=== PATIENT | female | born 1945 | race Caucasian/White ===

== ENCOUNTER 2017-12-01 14:15 | Observation (INO) | payer MEDICARE ==
[2017-12-01] MEDS ORDERED: SODIUM CHLORIDE 0.9% 500 ML IV ONE (14:40)
--- NOTE | 2017-12-01 14:44 | ED ---
General Adult HPI - General Chief complaint: Neuro Symptoms/Deficit Stated complaint: poss stroke Time Seen by Provider: 12/01/17 14:25 Source: patient, family, RN notes reviewed Mode of arrival: wheelchair Limitations: no limitations - History of Present Illness Initial comments: This is a 71-year-old female presents to the emergency department complaining of forgetfulness. states about 10:00 this morning he noted that she could not remember the dog's name and is asked about 8 times since he cannot recall the doctor's name. Patient also try to go to the bank and the post office but was unable to find it while driving around town. Patient then went to a urgent care where she saw and they recommended she come to our facility. Patient has had no blurred vision no slurred speech no weakness or numbness. states aside from her altered mental status he has not noticed any changes. He states yesterday she was completely normal. She has not had a fever she has not been sick recently she does not complain of any chest pain or abdominal pain. Patient is on any vomiting or diarrhea recently. - Related Data Home Medications Medication Instructions Recorded Confirmed Cholecalciferol [Vitamin D3] 1,000 unit PO DAILY 12/01/17 12/01/17 Escitalopram [Lexapro] 20 mg PO DAILY 12/01/17 12/01/17 Ipratropium [place] [Ipratropium 2 sprays EA NOSTRIL TID 12/01/17 12/01/17 [place] 0.03%] Krill Oil 500 mg PO DAILY 12/01/17 12/01/17 Levothyroxine Sodium [Synthroid] 125 mcg PO DAILY 12/01/17 12/01/17 Losartan Potassium 100 mg PO DAILY 12/01/17 12/01/17 Melatonin 10 mg PO HS 12/01/17 12/01/17 Multivitamins, Thera [Multivitamin 1 tab PO DAILY 12/01/17 12/01/17 (formulary)] buPROPion HCL [Wellbutrin SR] 150 mg PO BID 12/01/17 12/01/17 Allergies Allergy/AdvReac Type Severity Reaction Status Date / Time amoxicillin Allergy Unknown Verified 12/01/17 15:19 Penicillins Allergy Unknown Verified 12/01/17 15:19 latex AdvReac Unknown Verified 12/01/17 15:19 Review of Systems ROS Statement: Those systems with pertinent positive or pertinent negative responses have been documented in the HPI. ROS Other: All systems not noted in ROS Statement are negative. Past Medical History Past Medical History: Hyperlipidemia, Hypertension History of Any Multi-Drug Resistant Organisms: None Reported Past Surgical History: Appendectomy, Cholecystectomy, Tonsillectomy Additional Past Surgical History / Comment(s): bilateral hip replacement, knee surg, ankle Past Psychological History: No Psychological Hx Reported Smoking Status: Never smoker Past Alcohol Use History: None Reported Past Drug Use History: None Reported General Exam - General Exam Comments Initial Comments: GENERAL: Patient is well-developed and well-nourished. Patient is nontoxic and well- hydrated and is in no acute distress. Mildly anxious. ENT: Neck is soft and supple. No significant lymphadenopathy is noted. Oropharynx is clear. Moist mucous membranes. Neck has full range of motion without eliciting any pain. EYES: The sclera were anicteric and conjunctiva were pink and moist. Extraocular movements were intact and pupils were equal round and reactive to light. Eyelids were unremarkable. PULMONARY: Unlabored respirations. Good breath sounds bilaterally. No audible rales rhonchi or wheezing was noted. CARDIOVASCULAR: There is a regular rate and rhythm without any murmurs gallops or rubs. ABDOMEN: Soft and nontender with normal bowel sounds. No palpable organomegaly was noted. There is no palpable pulsatile mass. SKIN: Skin is clear with no lesions or rashes and otherwise unremarkable. NEUROLOGIC: Patient is alert and oriented x3. Patient however still cannot remember her daughter's name. Cranial nerves II through XII are grossly intact. Motor and sensory are also intact. Normal speech, volume and content. Symmetrical smile. MUSCULOSKELETAL: Normal extremities with adequate strength and full range of motion. No lower extremity swelling or edema. No calf tenderness. LYMPHATICS: No significant lymphadenopathy is noted PSYCHIATRIC: Normal psychiatric evaluation. Limitations: no limitations Course Vital Signs 12/01/17 12/01/17 12/01/17 14:24 14:45 15:00 Temperature 98.2 F Pulse Rate 71 64 78 Respiratory 18 18 18 Rate Blood Pressure 132/61 143/58 144/65 O2 Sat by Pulse 96 97 97 Oximetry 12/01/17 15:15 Temperature Pulse Rate 72 Respiratory 18 Rate Blood Pressure 146/60 O2 Sat by Pulse 97 Oximetry Medical Decision Making - Medical Decision Making EKG shows normal sinus rhythm at 67 bpm KS interval 170 QRS is 90 QT interval 426 QTC is 450. Patient's EKG shows no ST segment elevation or depression or T wave abnormalities are noted. CT of the brain showed no acute abnormality. Chest x-ray showed no acute abnormality. I spoke with Dr. Coon he agreed to admit the patient I admitted the patient I wrote admitting orders and consult to neurology and ordered neuro checks on the patient on the floor. - Lab Data Result diagrams: 12/01/17 15:00 12/01/17 15:00 Lab Results 12/01/17 12/01/17 12/01/17 Range/Units 14:37 15:00 15:00 WBC 9.2 (3.8-10.6) k/uL RBC 4.23 (3.80-5.40) m/uL Hgb 13.2 (11.4-16.0) gm/dL Hct 38.7 (34.0-46.0) % MCV 91.6 (80.0-100.0) fL MCH 31.2 (25.0-35.0) pg MCHC 34.0 (31.0-37.0) g/dL RDW 12.9 (11.5-15.5) % Plt Count 256 (150-450) k/uL Neutrophils % 52 % Lymphocytes % 35 % Monocytes % 6 % Eosinophils % 4 % Basophils % 1 % Neutrophils # 4.8 (1.3-7.7) k/uL Lymphocytes # 3.2 (1.0-4.8) k/uL Monocytes # 0.6 (0-1.0) k/uL Eosinophils # 0.4 (0-0.7) k/uL Basophils # 0.1 (0-0.2) k/uL PT (9.0-12.0) sec INR (<1.2) APTT (22.0-30.0) sec Sodium (137-145) mmol/L Potassium (3.5-5.1) mmol/L Chloride (98-107) mmol/L Carbon Dioxide (22-30) mmol/L Anion Gap mmol/L BUN (7-17) mg/dL Creatinine (0.52-1.04) mg/dL Est GFR (CKD-EPI)AfAm (>60 ml/min/1.73 sqM) Est GFR (CKD-EPI)NonAf (>60 ml/min/1.73 sqM) Glucose (74-99) mg/dL POC Glucose (mg/dL) 104 H (75-99) mg/dL POC Glu Platen Grinder ID Robert German Calcium (8.4-10.2) mg/dL Total Bilirubin (0.2-1.3) mg/dL AST (14-36) U/L ALT (9-52) U/L Alkaline Phosphatase (38-126) U/L Total Creatine Kinase 78 (30-135) U/L Total Protein (6.3-8.2) g/dL Albumin (3.5-5.0) g/dL 12/01/17 12/01/17 Range/Units 15:00 15:00 WBC (3.8-10.6) k/uL RBC (3.80-5.40) m/uL Hgb (11.4-16.0) gm/dL Hct (34.0-46.0) % MCV (80.0-100.0) fL MCH (25.0-35.0) pg MCHC (31.0-37.0) g/dL RDW (11.5-15.5) % Plt Count (150-450) k/uL Neutrophils % % Lymphocytes % % Monocytes % % Eosinophils % % Basophils % % Neutrophils # (1.3-7.7) k/uL Lymphocytes # (1.0-4.8) k/uL Monocytes # (0-1.0) k/uL Eosinophils # (0-0.7) k/uL Basophils # (0-0.2) k/uL PT 10.7 (9.0-12.0) sec INR 1.1 (<1.2) APTT 22.9 (22.0-30.0) sec Sodium 146 H (137-145) mmol/L Potassium 3.9 (3.5-5.1) mmol/L Chloride 110 H (98-107) mmol/L Carbon Dioxide 21 L (22-30) mmol/L Anion Gap 15 mmol/L BUN 22 H (7-17) mg/dL Creatinine 0.70 (0.52-1.04) mg/dL Est GFR (CKD-EPI)AfAm >90 (>60 ml/min/1.73 sqM) Est GFR (CKD-EPI)NonAf 87 (>60 ml/min/1.73 sqM) Glucose 99 (74-99) mg/dL POC Glucose (mg/dL) (75-99) mg/dL POC Glu Platen Grinder ID Calcium 9.7 (8.4-10.2) mg/dL Total Bilirubin 0.4 (0.2-1.3) mg/dL AST 36 (14-36) U/L ALT 37 (9-52) U/L Alkaline Phosphatase 62 (38-126) U/L Total Creatine Kinase (30-135) U/L Total Protein 7.0 (6.3-8.2) g/dL Albumin 4.2 (3.5-5.0) g/dL Disposition Clinical Impression: Altered mental status Disposition: ADMITTED IP TO THIS HOSP Referrals: Rachid Souza MD [Primary Care Provider] - 1-2 days Time of Disposition: 15:51
[2017-12-01 14:46] LABS: Glucose,Whole Blood 104 mg/dL (75-99)
--- NOTE | 2017-12-01 15:07 | CT ---
EXAMINATION TYPE: CT brain wo con DATE OF EXAM: 12/01/2017 COMPARISON: NONE HISTORY: Altered mental status. CT DLP: 828.4 mGycm Automated exposure control for dose reduction was used. FINDINGS: Nasal septal deviation noted. Ventricular system is midline with no midline shift or mass effect. Nonspecific low attenuation within the white matter. No acute intracranial hemorrhage or mass effect. Calvarium intact with evidence of hyperostosis frontalis. Area of low attenuation within the cerebell um may been the basis of partial volume averaging. IMPRESSION: NO ACUTE HEMORRHAGE OR MASS EFFECT. NONSPECIFIC WHITE MATTER CHANGES AND LOW ATTENUATION WITHIN THE R IGHT CEREBELLUM. IF THERE IS CONCERN FOR ACUTE ISCHEMIA RECOMMEND MRI CLINICALLY WARRANTED.
[2017-12-01 15:21] LABS: Basophils # (A) 0.1 k/uL (0-0.2); Basophils % (A) 1 %; Eosinophils # (A) 0.4 k/uL (0-0.7); Eosinophils % (A) 4 %; HCT 38.7 % (34.0-46.0); HGB 13.2 gm/dL (11.4-16.0); Lymphocytes # (A) 3.2 k/uL (1.0-4.8); Lymphocytes % (A) 35 %; MCH 31.2 pg (25.0-35.0); MCV 91.6 fL (80.0-100.0); Monocytes # (A) 0.6 k/uL (0-1.0); Monocytes % (A) 6 %; Neutrophils # (A) 4.8 k/uL (1.3-7.7); Neutrophils % (A) 52 %; Platelet Count 256 k/uL (150-450); RBC 4.23 m/uL (3.80-5.40); RDW 12.9 % (11.5-15.5); WBC 9.2 k/uL (3.8-10.6)
[2017-12-01] MEDS ORDERED: ACETAMINOPHEN TAB 500 MG TAB PO STA (15:26)
[2017-12-01 15:32] LABS: ALT 37 U/L (9-52); AST 36 U/L (14-36); Albumin 4.2 g/dL (3.5-5.0); Alkaline Phosphatase 62 U/L (38-126); Anion Gap 15 mmol/L; Blood Urea Nitrogen 22 mg/dL (7-17); Calcium 9.7 mg/dL (8.4-10.2); Carbon Dioxide 21 mmol/L (22-30); Chloride 110 mmol/L (98-107); Glucose 99 mg/dL (74-99); Potassium 3.9 mmol/L (3.5-5.1); Sodium 146 mmol/L (137-145); Total Bilirubin 0.4 mg/dL (0.2-1.3)
[2017-12-01 15:35] LABS: INR 1.1 (<1.2); Partial Thromboplastin Time 22.9 sec (22.0-30.0); Prothrombin Time 10.7 sec (9.0-12.0)
--- NOTE | 2017-12-01 15:39 | XR ---
EXAMINATION TYPE: XR chest 2V DATE OF EXAM: 12/01/2017 COMPARISON: None HISTORY: 71-year-old female confusion, headache, altered mental status TECHNIQUE: PA and lateral views FINDINGS: The cardiomediastinal silhouette, aorta, and pulmonary vasculature are within normal limits. Mild sasha pical pleural-parenchymal scarring. Otherwise, lungs and pleural spaces are clear. IMPRESSION: No acute cardiopulmonary process.
[2017-12-01 15:41] LABS: Creatine Kinase 78 U/L (30-135)
[2017-12-01 15:52] LABS: Appearance,Urine Clear (Clear); Bilirubin,Urine Negative (Negative); Blood,Urine Negative (Negative); Color,Urine Yellow; Glucose,Urine (UA) Negative (Negative); Ketones,Urine Trace (Negative); Leukocyte Esterase,Urine Negative (Negative); Nitrite,Urine Negative (Negative); PH, Urine 5.5 (5.0-8.0); Protein,Urine Negative (Negative); Specific Gravity,Urine 1.025 (1.001-1.035); Urobilinogen,Urine <2.0 mg/dL (<2.0)
[2017-12-01 15:52] LABS: Creatine Kinase MB 0.9 ng/mL (0.0-2.4); Troponin I <0.012 ng/mL (0.000-0.034)
[2017-12-01] MEDS ORDERED: ASPIRIN 325 MG TAB PO STA (15:52)
[2017-12-01 16:06] LABS: Amphetamine Screen,Urine Not Detected (NotDetected); Barbiturate Screen,Urine Not Detected (NotDetected); Benzodiazepines Screen,Urine Not Detected (NotDetected); Cocaine Screen,Urine Not Detected (NotDetected); Methadone Screen, Urine Not Detected (NotDetected); Opiate Screen,Urine Not Detected (NotDetected); Oxycodone Screen, Urine Not Detected (NotDetected); Phencyclidine Screen,Urine Not Detected (NotDetected); Tricyclic Antidepressant,Urine Not Detected (NotDetected); Urn Cannabinoid Scrn Not Detected (NotDetected)
--- NOTE | 2017-12-01 17:11 | P.HPIM ---
History of Present Illness 71-year-old pleasant female came in with the comments of forgetfulness, patient was bit confused today morning can't number of her daughter's phone she could not remember the dog's name and is asked about 8 times since he cannot recall the doctor's name. Patient also try to go to the bank and the post office but was unable to find it while driving around town. Patient then went to a urgent care where she saw and they recommended she come to our facility. Patient has had no blurred vision no slurred speech no weakness or numbness. states aside from her altered mental status he has not noticed any changes. Patient denied any fever chills nausea vomiting. Patient has been traveling for last 2-3 days didn't have much sleep because of which patient did take medication doxalamine [id number] which is an anticollagen medications which can cause confusion. Patient apparently has a some history of chronic memory issues. He admitted for comfort transient ischemic attack. Patient's symptoms completely resolved at this point of time patient denied dysuria nausea vomiting denied any [id number] drug use. Urine drug screen is essentially negative. Review of Systems REVIEW OF SYSTEMS: CONSTITUTIONAL: No fever, no malaise, no fatigue. HEENT: No recent visual problems or hearing problems. Denied any sore throat. CARDIOVASCULAR: No chest pain, orthopnea, PND, no palpitations, no syncope. PULMONARY: No shortness of breath, no cough, no hemoptysis. GASTROINTESTINAL: No diarrhea, no nausea, no vomiting, no abdominal pain. Normoactive bowel sounds. NEUROLOGICAL: No headaches, no weakness, no numbness. HEMATOLOGICAL: Denies any bleeding or petechiae. GENITOURINARY: Denies any burning micturition, frequency, or urgency. MUSCULOSKELETAL/RHEUMATOLOGICAL: Denies any joint pain, swelling, or any muscle pain. ENDOCRINE: Denies any polyuria or polydipsia. The rest of the 14-point review of systems is negative. Past Medical History Past Medical History: Hyperlipidemia, Hypertension History of Any Multi-Drug Resistant Organisms: None Reported Past Surgical History: Appendectomy, Cholecystectomy, Tonsillectomy Additional Past Surgical History / Comment(s): bilateral hip replacement, knee surg, ankle Past Psychological History: No Psychological Hx Reported Smoking Status: Never smoker Past Alcohol Use History: None Reported Past Drug Use History: None Reported Medications and Allergies Home Medications Medication Instructions Recorded Confirmed Type Cholecalciferol [Vitamin D3] 1,000 unit PO DAILY 12/01/17 12/01/17 History Escitalopram [Lexapro] 20 mg PO DAILY 12/01/17 12/01/17 History Ipratropium [place] [Ipratropium 2 sprays EA NOSTRIL TID 12/01/17 12/01/17 History [place] 0.03%] Krill Oil 500 mg PO DAILY 12/01/17 12/01/17 History Levothyroxine Sodium [Synthroid] 125 mcg PO DAILY 12/01/17 12/01/17 History Losartan Potassium 100 mg PO DAILY 12/01/17 12/01/17 History Melatonin 10 mg PO HS 12/01/17 12/01/17 History Multivitamins, Thera [Multivitamin 1 tab PO DAILY 12/01/17 12/01/17 History (formulary)] buPROPion HCL [Wellbutrin SR] 150 mg PO BID 12/01/17 12/01/17 History Allergies Allergy/AdvReac Type Severity Reaction Status Date / Time amoxicillin Allergy Unknown Verified 12/01/17 15:19 Penicillins Allergy Unknown Verified 12/01/17 15:19 latex AdvReac Unknown Verified 12/01/17 15:19 Physical Exam Vitals: Vital Signs Temp Pulse Resp BP Pulse Ox 12/01/17 15:30 78 20 138/61 98 12/01/17 15:15 72 18 146/60 97 12/01/17 15:00 78 18 144/65 97 12/01/17 14:45 64 18 143/58 97 12/01/17 14:24 98.2 F 71 18 132/61 96 Intake and Output 12/01/17 12/01/17 12/01/17 06:59 14:59 22:59 Other: Weight 102.058 kg PHYSICAL EXAMINATION: GENERAL: The patient is alert and oriented x3, not in any acute distress. Well developed, well nourished. HEENT: Pupils are round and equally reacting to light. EOMI. No scleral icterus. No conjunctival pallor. Normocephalic, atraumatic. No pharyngeal erythema. No thyromegaly. CARDIOVASCULAR: S1 and S2 present. No murmurs, rubs, or gallops. PULMONARY: Chest is clear to auscultation, no wheezing or crackles. ABDOMEN: Soft, nontender, nondistended, normoactive bowel sounds. No palpable organomegaly. MUSCULOSKELETAL: No joint swelling or deformity. EXTREMITIES: No cyanosis, clubbing, or pedal edema. NEUROLOGICAL: Gross neurological examination did not reveal any focal deficits. SKIN: No rashes. Results CBC & Chem 7: 12/01/17 15:00 12/01/17 15:00 Labs: Abnormal Lab Results - Last 24 Hours (Table) 12/01/17 12/01/17 12/01/17 Range/Units 14:37 15:00 15:40 Sodium 146 H (137-145) mmol/L Chloride 110 H (98-107) mmol/L Carbon Dioxide 21 L (22-30) mmol/L BUN 22 H (7-17) mg/dL POC Glucose (mg/dL) 104 H (75-99) mg/dL Urine Ketones Trace H (Negative) Assessment and Plan Plan: -Altered mental status: CT of the head was reviewed and patient will be admitted for stroke workup although my suspicion is low for stroke or TIA echocardiac exam will be obtained and aspirin will be continued and ileal will be obtained, carotid Doppler will be obtained as well. Neurology was consulted. Patient's confusion is most related to the anticollagen medication she took for sleep along with lack of sleep for last 2-3 days. -Hyperlipidemia -Hypertension For above-mentioned chronic medical problems patient will be resumed and continued on home medications.
--- NOTE | 2017-12-01 19:53 | US ---
EXAMINATION TYPE: US carotid duplex BILAT DATE OF EXAM: 12/01/2017 COMPARISON: NONE CLINICAL HISTORY: TIA. TIA EXAM MEASUREMENTS: RIGHT: Peak Systolic Velocity (PSV) cm/sec ----- Right CCA: 76.7 ----- Right ICA: 73.4 ----- Right ECA: 122.1 ICA/CCA ratio: 1.0 RIGHT: End Diastole cm/sec ----- Right CCA: 17.2 ----- Right ICA: 26.0 ----- Right ECA: 13.2 LEFT: Peak Systolic Velocity (PSV) cm/sec ----- Left CCA: 79.8 ----- Left ICA: 97.8 ----- Left ECA: 83.1 ICA/CCA ratio: 1.2 LEFT: End Diastole cm/sec ----- Left CCA: 17.6 ----- Left ICA: 33.4 ----- Left ECA: 6.3 VERTEBRALS (direction of flow): Right Vertebral: Antegrade Left Vertebral: Antegrade Rhythm: Normal IMPRESSION: 1. BILATERAL INTIMAL THICKENING; MINIMAL PLAQUE BILATERAL BULB. 2. NO ELEVATED VELOCITIES; NO SIGNIFICANT STENOSIS.
--- NOTE | 2017-12-01 20:27 | P.CNNES ---
History of Present Illness Consult date: 12/01/17 History of Present Illness: The patient is a 71-year-old right-handed white female who states that she ran out to do some errands this morning. She became confused while doing those errands. She forgot her daughter's address which she normally would no without a problem. She also forgot her home phone number which is her cell phone. In the morning she apparently asked the same question to her several times. She asked her the name of their new dog. The patient did take a sleeping pill last night but it she has taken this tame same sleeping pill in the past without a problem. She has been exhausted after driving from [place] over the past 2 days and returning yesterday. The patient denies any focal weakness numbness visual changes dizziness or headache. She did have a headache earlier today which has resolved. Review of Systems Constitutional: Denies chills, Denies fever Cardiovascular: Denies chest pain, Denies shortness of breath Respiratory: Denies cough Gastrointestinal: Denies abdominal pain, Denies diarrhea, Denies nausea, Denies vomiting Musculoskeletal: Denies myalgias Neurological: Denies numbness, Denies weakness Psychiatric: Denies anxiety, Denies depression Past Medical History Past Medical History: Hyperlipidemia, Hypertension History of Any Multi-Drug Resistant Organisms: None Reported Past Surgical History: Appendectomy, Cholecystectomy, Tonsillectomy Additional Past Surgical History / Comment(s): bilateral hip replacement, knee surg, ankle Past Psychological History: No Psychological Hx Reported Smoking Status: Never smoker Past Alcohol Use History: None Reported Past Drug Use History: None Reported Medications and Allergies Home Medications Medication Instructions Recorded Confirmed Type Cholecalciferol [Vitamin D3] 1,000 unit PO DAILY 12/01/17 12/01/17 History Escitalopram [Lexapro] 20 mg PO DAILY 12/01/17 12/01/17 History Ipratropium [place] [Ipratropium 2 sprays EA NOSTRIL TID 12/01/17 12/01/17 History [place] 0.03%] Krill Oil 500 mg PO DAILY 12/01/17 12/01/17 History Levothyroxine Sodium [Synthroid] 125 mcg PO DAILY 12/01/17 12/01/17 History Losartan Potassium 100 mg PO DAILY 12/01/17 12/01/17 History Melatonin 10 mg PO HS 12/01/17 12/01/17 History Multivitamins, Thera [Multivitamin 1 tab PO DAILY 12/01/17 12/01/17 History (formulary)] buPROPion HCL [Wellbutrin SR] 150 mg PO BID 12/01/17 12/01/17 History Allergies Allergy/AdvReac Type Severity Reaction Status Date / Time amoxicillin Allergy Unknown Verified 12/01/17 15:19 Penicillins Allergy Unknown Verified 12/01/17 15:19 latex AdvReac Unknown Verified 12/01/17 15:19 Physical Examination - Vital Signs Vital Signs: Vital Signs Temp Pulse Pulse Resp BP BP Pulse Ox 12/01/17 19:00 66 16 145/66 97 12/01/17 18:50 65 18 139/60 97 12/01/17 16:30 61 18 136/59 98 12/01/17 15:30 78 20 138/61 98 12/01/17 15:15 72 18 146/60 97 12/01/17 15:00 78 18 144/65 97 12/01/17 14:45 64 18 143/58 97 12/01/17 14:24 98.2 F 71 18 132/61 96 Intake and Output 12/01/17 12/01/17 12/01/17 06:59 14:59 22:59 Other: Weight 102.058 kg - Constitutional General appearance: cooperative - EENT EENT: PERRL, hearing intact, vision intact - Respiratory Respiratory: lungs clear - Cardiovascular Cardiovascular: regular rate - Integumentary Integumentary: normal - Neurologic Neurologic examination mental status she was awake she was alert she was oriented 3 her speech was fluent and she was able to give her cell phone number she was able to give her daughter's address she was able to recall 3 out of 3 objects in 5 minutes she was able to spell world and do simple calculations. There is no a aphasia or dysarthria. Cranial nerve examination: V1/V2/V3 grossly intact, face symmetric, tongue midline Speech examination: intact Detailed motor examination: grossly full strength in all extremities Reflexes: 2+: knee - Psychiatric Psychiatric: mood/affect appropriate Results - Laboratory Findings CBC and BMP: 12/01/17 15:00 12/01/17 15:00 Abnormal Lab Findings: Abnormal Labs 12/01/17 12/01/17 12/01/17 14:37 15:00 15:40 Sodium 146 H Chloride 110 H Carbon Dioxide 21 L BUN 22 H POC Glucose (mg/dL) 104 H Urine Ketones Trace H Assessment and Plan (1) Transient global amnesia Current Visit: Yes Status: Acute SNOMED Code(s): 307403646 Plan: The patient has likely had an episode of transient global amnesia. Recommend carotid ultrasound and echocardiogram. Also we'll do MRI of the brain. Patient will start aspirin daily.. Also recommend EEG.
[2017-12-01] MEDS ORDERED: MELATONIN 5 MG TABLET PO SCH (21:00)
[2017-12-01] MEDS: buPROPion SR 150 MG TABLET.ER PO SCH (21:03)
[2017-12-01 22:05] VITALS: BMI 32.1
[2017-12-01] MEDS: IPRATROPIUM BROMIDE 0.06% NASAL SPRAY (15 ML) EA NOSTRIL SCH (22:06)
[2017-12-02] MEDS ORDERED: LEVOTHYROXINE 125 MCG TAB PO SCH (06:30)
[2017-12-02 07:38] LABS: Cholesterol 179 mg/dL (<200); HDL Cholesterol 40 mg/dL (40-60); LDL Cholesterol,Calculated 109 mg/dL (0-99); Triglycerides 151 mg/dL (<150)
[2017-12-02] MEDS: buPROPion SR 150 MG TABLET.ER PO SCH (08:47)
[2017-12-02] MEDS: IPRATROPIUM BROMIDE 0.06% NASAL SPRAY (15 ML) EA NOSTRIL SCH (08:48)
[2017-12-02] MEDS ORDERED: ESCITALOPRAM 20 MG TAB PO SCH (09:00)
[2017-12-02] MEDS ORDERED: ASPIRIN 325 MG TAB PO SCH (09:00)
[2017-12-02] MEDS ORDERED: LOSARTAN 50 MG TAB PO SCH (09:00)
[2017-12-02] MEDS ORDERED: CHOLECALCIFEROL 1,000 UNIT TAB PO SCH (09:00)
--- NOTE | 2017-12-02 10:26 | ECHOF ---
Referral Reason:TIA MEASUREMENTS -------- HEIGHT: 180.3 cm WEIGHT: 104.3 kg BP: 144/72 RVIDd: 3.3 cm (< 3.3) IVSd: 1.1 cm (0.6 - 1.1) LVIDd: 4.6 cm (3.9 - 5.3) LVPWd: 1.0 cm (0.6 - 1.1) IVSs: 1.5 cm LVIDs: 3.3 cm LVPWs: 1.5 cm LAESV Index (A-L): 29.41 ml/m Ao Diam: 3.3 cm (2.0 - 3.7) AV Cusp: 2.1 cm (1.5 - 2.6) LA Diam: 3.0 cm (2.7 - 3.8) EPSS: 0.6 cm MV E Anthony: 0.93 m/s MV DecT: 201 ms MV A Anthony: 0.92 m/s MV E/A Ratio: 1.01 RAP: 5.00 mmHg RVSP: 16.57 mmHg MV EF SLOPE: 66.04 mm/s (70 - 150) MV EXCURSION: 1.10 cm (> 18.000) FINDINGS -------- Sinus rhythm with extra systolic beats. This was a technically difficult study with suboptimal views. The left ventricular size is normal. There is borderline concentric left ventricular hypertrophy. Overall left ventricular systolic function is normal with, an EF between 55 - 60 %. The right ventricle is normal in size and function. Normal LA size by volume 22+/-6 ml/m2. The right atrium is normal in size. Eustachian valve seen in the right atrium (normal finding). 3ml of Lumason was utilized for enhancement of images. Aortic valve is trileaflet and is mildly thickened. Trace to mild aortic regurgitation. There is no evidence of aortic stenosis. The mitral valve leaflets are mildly thickened. There is trace to mild mitral regurgitation. Trace tricuspid regurgitation present. Right ventricular systolic pressure is normal at < 35 mmHg. There is no evidence of pulmonary hypertension. Trace/mild (physiologic) pulmonic regurgitation. The aortic root size is normal. IVC Not well visulized. There is no pericardial effusion. CONCLUSIONS -------- 1. Sinus rhythm with extra systolic beats. 2. This was a technically difficult study with suboptimal views. 3. The left ventricular size is normal. 4. There is borderline concentric left ventricular hypertrophy. 5. Overall left ventricular systolic function is normal with, an EF between 55 - 60 %. 6. Normal LA size by volume 22+/-6 ml/m2. 7. Eustachian valve seen in the right atrium (normal finding). 8. 3ml of Lumason was utilized for enhancement of images. 9. Aortic valve is trileaflet and is mildly thickened. 10. Trace to mild aortic regurgitation. 11. The mitral valve leaflets are mildly thickened. 12. There is trace to mild mitral regurgitation. 13. Trace tricuspid regurgitation present. 14. Right ventricular systolic pressure is normal at < 35 mmHg. 15. There is no evidence of pulmonary hypertension. 16. Trace/mild (physiologic) pulmonic regurgitation. 17. The aortic root size is normal. 18. IVC Not well visulized. 19. There is no pericardial effusion. [employer]: Brent Melchor RDCS
[2017-12-02 11:38] VITALS: BP 148/69; PULSE 57; RESP 16; TEMP 96
[2017-12-02] MEDS ORDERED: MULTIVITAMINS, THERA 1 EACH TAB PO SCH (12:00)
--- NOTE | 2017-12-02 12:07 | P.DS ---
Providers Date of admission: 12/01/17 15:52 Attending physician: Jaki Coon Consults: 12/01/17 15:52 Consult Physician Routine Consulting Provider: Elizabeth Callaway Consult Reason/Comments: Altered mental status, amnestic Do you want consulting provider notified?: Yes Primary care physician: [facility] Course: 69-year-old cousin female came in with complains of confusion lasted for a couple hours and then resolved. Neurology validate the patient all the neurological workup is negative carotid Doppler echocardiogram essentially negative patient will undergo MRI is that is negative patient will be discharged I believe it's related to anticollagen medications she received day before. Neurology believes patient has a transient global amnesia. Patient's LDL is bit elevated at 100 dietary counseling was provided and patient will be discharged today. for rest of her chronic medical problems please refer to my HPI from yesterday PHYSICAL EXAMINATION: GENERAL: The patient is alert and oriented x3, not in any acute distress. Well developed, well nourished. HEENT: Pupils are round and equally reacting to light. EOMI. No scleral icterus. No conjunctival pallor. Normocephalic, atraumatic. No pharyngeal erythema. No thyromegaly. CARDIOVASCULAR: S1 and S2 present. No murmurs, rubs, or gallops. PULMONARY: Chest is clear to auscultation, no wheezing or crackles. ABDOMEN: Soft, nontender, nondistended, normoactive bowel sounds. No palpable organomegaly. MUSCULOSKELETAL: No joint swelling or deformity. EXTREMITIES: No cyanosis, clubbing, or pedal edema. NEUROLOGICAL: Gross neurological examination did not reveal any focal deficits. SKIN: No rashes. Plan - Discharge Summary Discharge Rx Participant: No New Discharge Prescriptions: New Aspirin 81 mg PO DAILY #30 chewable No Action Multivitamins, Thera [Multivitamin (formulary)] 1 tab PO DAILY Melatonin 10 mg PO HS Cholecalciferol [Vitamin D3] 1,000 unit PO DAILY Krill Oil 500 mg PO DAILY buPROPion HCL [Wellbutrin SR] 150 mg PO BID Ipratropium [place] [Ipratropium [place] 0.03%] 2 sprays EA NOSTRIL TID Escitalopram [Lexapro] 20 mg PO DAILY Losartan Potassium 100 mg PO DAILY Levothyroxine Sodium [Synthroid] 125 mcg PO DAILY Discharge Medication List Cholecalciferol [Vitamin D3] 1,000 unit PO DAILY 12/01/17 [History] Escitalopram [Lexapro] 20 mg PO DAILY 12/01/17 [History] Ipratropium [place] [Ipratropium [place] 0.03%] 2 sprays EA NOSTRIL TID [History] Krill Oil 500 mg PO DAILY 12/01/17 [History] Levothyroxine Sodium [Synthroid] 125 mcg PO DAILY 12/01/17 [History] Losartan Potassium 100 mg PO DAILY 12/01/17 [History] Melatonin 10 mg PO HS 12/01/17 [History] Multivitamins, Thera [Multivitamin (formulary)] 1 tab PO DAILY 12/01/17 [History ] buPROPion HCL [Wellbutrin SR] 150 mg PO BID 12/01/17 [History] Aspirin 81 mg PO DAILY #30 chewable 12/02/17 [Rx] Follow up Appointment(s)/Referral(s): Rachid Souza MD [Primary Care Provider] - 3 Days Discharge Disposition: HOME SELF-CARE
--- NOTE | 2017-12-02 15:25 | MR ---
EXAMINATION TYPE: MR brain wo con DATE OF EXAM: 12/02/2017 COMPARISON: CT 12/01/2017 HISTORY: 71-year-old female confusion, AMS TECHNIQUE: Multiplanar, multisequence images of the brain and brainstem were acquired without IV con trast. Diffusion weighted imaging is performed. FINDINGS: No evidence for acute infarction, hemorrhage, mass, mass effect, midline shift, herniation, effacemen t of basal cisterns, or extra-axial fluid collection. Mild generalized supratentorial volume loss. No hydrocephalus. T2/FLAIR weighted sequences show only minimal scattered subcortical and deep white matter bright sign al change in the cerebral hemispheres. No abnormality seen in the superior right cerebellum as questi oned on CT. CT findings suggest volume averaging artifact. Major intracranial flow voids are intact. Midline structures demonstrate normal morphology. The craniocervical junction is normal. Rightward nasal septal deviation. Trace mucosal thickening ethmoid air cells. Globes are intact. IMPRESSION: Mild generalized cerebral atrophy. There is only minimal scattered burden of T2 bright white matter c hange likely relating to chronic small vessel ischemic disease. No acute intracranial abnormality seen. CT findings along the right superior cerebellum, in light of the MRI findings, suggest volume averaging artifact.
--- NOTE | 2017-12-02 16:25 | EEG ---
ELECTROENCEPHALOGRAM REPORT DATE OF EE12/02/2017 ELECTROENCEPHALOGRAPHIC EXAMINATION REPORT: INDICATION FOR EXAMINATION: This patient is a 71-year-old female being evaluated for acute confusion and altered mental status. Patient with possible episode of transient global amnesia. AGE: [age]. EEG FINDINGS: A routine 21-channel awake digital EEG recording was accomplished utilizing the 10-20 international system with bipolar and referential montages. The background activity in the most alert resting state consists of a low amplitude, fairly well developed and well sustained 8 Hz activity over the posterior head regions. This posterior rhythm attenuates to eye opening. There is a small amount of low amplitude 18-20 Hz beta activity seen maximally over the anterior head regions. Muscle and eye movement artifact was observed on several occasions during the tracing. Hyperventilation was not performed. Photic stimulation at flash frequencies of 2-30 Hz produced a good symmetrical occipital driving response. No epileptiform discharges were seen. IMPRESSION: This EEG is within normal limits for the patient's age. The EEG failed to reveal any focal, lateralized, or epileptiform abnormalities. Clinical correlation is recommended. MMODL / IJN: [id number] /
== END 2017-12-02 17:15 | disposition home or self-care (01) ==
LOC: EC 14:15 → INTOOBSV 15:52 → 6SEL 15:52
PROVIDERS: ADMIT Internal Medicine; ATTEND Internal Medicine
DX: R41.82 Altered mental status, unspecified (principal); E78.5 Hyperlipidemia, unspecified; E78.00 Pure hypercholesterolemia, unspecified; I10 Essential (primary) hypertension; Z88.0 Allergy status to penicillin; Z91.040 Latex allergy status; Z79.899 Other long term (current) drug therapy; Z79.890 Hormone replacement therapy
CPT/HCPCS: 99285 ×2; 96360 ×2; 36415; 94760; 95819; 93005; 97161; 97165; 92523; 80053; 80061; 82550; 82553; 84484; 85025; 85610; 85730; 81003; 80306; 71046; 93880; 70450; 70551; G0378 ×2; C8929; S0106; Q9950; 93306

== ENCOUNTER → 2024-01-04 | Outpatient (CLI) | payer MEDICARE ==
[2024-01-04 15:13] LABS: Basophils # (A) 0.11 X 10*3/uL (0.00-0.10); Basophils % (A) 0.9 %; Eosinophils # (A) 0.15 X 10*3/uL (0.04-0.35); Eosinophils % (A) 1.3 %; HCT 43.3 % (37.2-46.3); HGB 14.2 g/dL (12.0-15.0); Lymphocytes # (A) 3.07 X 10*3/uL (0.90-5.00); Lymphocytes % (A) 25.9 %; MCH 32.3 pg (27.0-32.0); MCHC 32.8 g/dL (32.0-37.0); MCV 98.6 FL (80.0-97.0); Monocytes # (A) 0.88 X 10*3/uL (0.20-1.00); Monocytes % (A) 7.4 %; NRBC Per 100 WBC 0 X 10*3/uL (0.00-0.01); Neutrophils # (A) 7.56 X 10*3/uL (1.80-7.70); Neutrophils % (A) 63.9 %; Platelet Count 298 X 10*3/uL (140-440); RBC 4.39 X 10*6/uL (4.10-5.20); RDW 15.4 % (11.5-14.5); WBC 11.84 X 10*3/uL (4.50-10.00)
[2024-01-04 15:39] LABS: BUN/Creat Ratio 31.89 Ratio (12.00-20.00); Blood Urea Nitrogen 28.7 mg/dL (9.0-27.0); Carbon Dioxide 19.3 mmol/L (21.6-31.8); Chloride 104 mmol/L (96-109); Glucose 99 mg/dL (70-110); Potassium 4.4 mmol/L (3.5-5.5); Sodium 139 mmol/L (135-145)
== END | disposition home or self-care (01) ==
LOC: LABPAT 10:43
PROVIDERS: ATTEND Orthopaedic Surgery Hand Surgery
DX: Z01.812 Encounter for preprocedural laboratory examination (principal); G56.01 Carpal tunnel syndrome, right upper limb
CPT/HCPCS: 80048; 85025

== ENCOUNTER 2024-01-19 08:19 | Day surgery (SDC) | payer MEDICARE ==
--- NOTE | 2024-01-17 09:11 | P.HPOR ---
History of Present Illness H&P Date: 01/17/24 Subjective: This is a 78 year old female that presents today for initial evaluation regarding a several year history of progressively worsening right and left hand paresthesias in the thumb, index, middle and ring fingers. The patient has tried bracing on both sides with minimal relief and 3 weeks ago underwent a left carpal tunnel steroid injection which only provided mild relief. They deny any inciting event. She states her numbness in constant. She underwent an EMG in [facility] in [place] which she states showed she had carpal tunnel syndrome. The right is equal to the left in severity. Physical Examination: RUE: AIN/PIN/Radial/Ulnar/Median motor intact. Radial/Ulnar/Median SILT. 2+/4 Radial/Ulnar pulses palpated. 5/5 APB, 5/5 FDI. Negative Finkelsteins, negative CMC grind, positive Durkan's compression. LUE: AIN/PIN/Radial/Ulnar/Median motor intact. Radial/Ulnar/Median SILT. 2+/4 Radial/Ulnar pulses palpated. 5/5 APB, 5/5 FDI. Negative Finkelsteins, negative CMC grind, positive Durkan's compression. Impression: 1.) Right carpal tunnel syndrome 2.) Left carpal tunnel syndrome Plan: Diagnosis and treatment options were discussed with the patient. The patient has failed conservative treatment and would like to pursue a right endoscopic vs open carpal tunnel release. Risks and benefits of surgery including bleeding, infection, damage to surrounding tissue, need for further surgery, possible need to convert to open procedure, residual numbness were discussed and the patient wished to go forward with surgery. -Cj Mason DO Orthopedic Hand/Upper Extremity Surgeon Past Medical History Past Medical History: Hyperlipidemia, Hypertension, Osteoarthritis (OA), Thyroid Disorder History of Any Multi-Drug Resistant Organisms: None Reported Past Surgical History: Appendectomy, Cholecystectomy, Orthopedic Surgery, Tonsillectomy Additional Past Surgical History / Comment(s): bilateral hip replacement, knee surg, ankle, right shoulder surgery Past Anesthesia/Blood Transfusion Reactions: No Reported Reaction Past Psychological History: No Psychological Hx Reported Past Alcohol Use History: None Reported Past Drug Use History: None Reported - Past Family History Mother Family Medical History: Coronary Artery Disease (CAD) Additional Family Medical History / Comment(s): Lupus Father Family Medical History: Cancer Additional Family Medical History / Comment(s): from lung cancer Medications and Allergies Home Medications Medication Instructions Recorded Confirmed Type Cholecalciferol [Vitamin D3] 1,000 unit PO DAILY 12/01/17 12/01/17 History Escitalopram [Lexapro] 20 mg PO DAILY 12/01/17 12/01/17 History Ipratropium [place] [Ipratropium 2 sprays EA NOSTRIL TID 12/01/17 12/01/17 History [place] 0.03%] Krill Oil 500 mg PO DAILY 12/01/17 12/01/17 History Levothyroxine Sodium [Synthroid] 125 mcg PO DAILY 12/01/17 12/01/17 History Losartan Potassium 100 mg PO DAILY 12/01/17 12/01/17 History Melatonin [Melatonin ER] 10 mg PO HS 12/01/17 12/01/17 History Multivitamins, Thera [Multivitamin 1 tab PO DAILY 12/01/17 12/01/17 History (formulary)] buPROPion HCL [Wellbutrin SR] 150 mg PO BID 12/01/17 12/01/17 History Aspirin 81 mg PO DAILY #30 chewable 12/02/17 Rx Atorvastatin [Lipitor] 20 mg PO HS #30 tablet 12/02/17 Rx Allergies Allergy/AdvReac Type Severity Reaction Status Date / Time amoxicillin Allergy Unknown Verified 12/01/17 15:19 Penicillins Allergy Unknown Verified 12/01/17 15:19 latex AdvReac Unknown Verified 12/01/17 15:19 Physical Examination Osteopathic Statement: *. No significant issues noted on an osteopathic structural exam other than those noted in the History and Physical/Consult.
[~2024-01-19 08:19] MED LIST: Pre Op ABX Message 1 EACH MISC MISCELLANE ONE
[2024-01-19] MEDS ORDERED: LIDOCAINE 1% (10MG/ML) FOR IV START INTRADERMA PRN (08:32)
[2024-01-19] MEDS ORDERED: HYDROmorphone 0.5 MG/0.5 ML SYRINGE IVP PRN (08:32)
[2024-01-19] MEDS ORDERED: MIDAZOLAM 2 MG/2 ML VIAL IV PRN (08:32)
[2024-01-19] MEDS: IV FLUID CONTINUATION 1,000 ML IV ONE (08:45)
[2024-01-19] MEDS: LIDOCAINE 2% INJ 20 MG/ML SQ ONE ×2 (09:04→09:23)
[2024-01-19] MEDS: BUPIVACAINE (PF) 0.5% 30 ML VIAL SQ ONE ×2 (09:04→09:23)
[2024-01-19] MEDS: DEXAMETHASONE SOD PHOSPHATE 4 MG/ML 1 ML VIAL IV ONE (09:10)
[2024-01-19] MEDS: ONDANSETRON 4 MG/2 ML VIAL IVP ONE (09:10)
[2024-01-19] MEDS: LACTATED RINGERS 1,000 ML IV SCH (09:10)
[2024-01-19 09:13] VITALS: RESP 16; TEMP 97.2
[2024-01-19] MEDS ORDERED: KETOROLAC 15 MG/ML 1 ML VIAL ONE (09:16)
[2024-01-19] MEDS ORDERED: PROPOFOL 10 MG/ML 20 ML VIAL IV ONE (09:16)
[2024-01-19] MEDS ORDERED: LIDOCAINE 1% INJ 10MG/ML (20 ML MDV) ONE (09:16)
--- NOTE | 2024-01-19 09:43 | P.OP ---
Date of Procedure: 01/19/24 Preoperative Diagnosis: Right carpal tunnel syndrome Postoperative Diagnosis: Right carpal tunnel syndrome Procedure(s) Performed: Right endoscopic carpal tunnel release Anesthesia: MAC Surgeon: Cj Mason Bath Steward #1: Parvez Morales Estimated Blood Loss (ml): 0 Pathology: none sent Condition: stable Disposition: PACU Description of Procedure: This is a 78 year old female who presents today for a right endoscopic carpal tunnel release after having failed conservative treatment in the past. Risks and benefits of surgery were discussed with the patient including bleeding, damage to surrounding tissue, infection, need to convert to open procedure, need for further surgery as well as risks of anesthesia including pulmonary embolism and even and the patient wished to proceed with surgical intervention. The patients was seen in the pre-operative area by myself. Consent and H&P were completed and updated. The correct extremity was marked in the pre-operative area by myself and all other questions were answered. Operative Narrative: The patient was brought to the operating room by the department of anesthesia. They remained on the portable stretcher and a rolling hand table was brought to the side of the operative extremity. Pre-operative time out was performed indicating the correct patient, procedure and laterality. All in the room agreed. The patient was then drifted off to sleep by the department of an esthesia. MAC anesthesia was utilized and a 50:50 mixture of 1% Lidocaine and 0.5% bupivacaine was injected into the subcutaneous tissues of the palmar skin, 8ccs total. A nonsterile tourniquet was then applied to the operative extremity and the right upper extremity was then prepped and draped in normal sterile fashion. The operative extremity was the exsanguinated with an esmarch bandage and the tourniquet was inflated to 250mmHg. 15 blade scalpel was utilized to make a transverse incision on the palmar skin just ulnar to the palmaris longus tendon at the level of the distal wrist creas e. Ragnell retractor was then placed radially and blunt dissection was performed to reveal the distal forearm fascia. This was lifted with fine Qasim pick ups and Littler tenotomy scissors were then used to open the forearm fascia transversely and a double skin hook was then placed. Hamate finder was placed into the carpal tunnel and then sequential sized dilators were inserted followed by the synovial elevator to separate the flexor tenosynovium from the undersurface of the transverse carpal ligament and a washboard texture was felt. The MicroAire endoscopic carpal tunnel release system gun was the then inserted into the carpal tunnel hugging the deep portion of the transverse carpal ligament in line with the base of the ring finger. Transverse fibers of the ligament were directly visualized. Pressure was applied on the palm to reveal the distal extent of the transverse carpal ligament. The blade was then deployed and the distal half of the transverse carpal ligament was released. The scope was then brought distal again and remaining transverse fibers were incised with the blade. The proximal half of the transverse carpal ligament was then divided and again the scope was advanced distal and remaining transverse fibers were incised with the blade. The radial and ulnar leaflets were directly visualized and mobile consistent with complete release. Tenotomy scissors were then ut ilized to release the remaining distal forearm fascia under direct visualization taking care to preserve the palmar cutaneous branch of the median nerve. Skin closure was performed with interrupted 4-0 Monocryl suture followed by steri strips. Sterile dressing was applied consisting 4x4s, Webril, and an flori bandage. Tourniquet was let down and the hand immediately was well perfused. The patient was then woken by the department of anesthesia and transferred to PACU in stable condition. Parvez BURTON was present for the case in its entirety and assisted in major portions of the case and protection of vital neurovascular structures. Cj Mason D.O. Orthopedic Hand/Upper Extremity Surgeon
[2024-01-19 09:56] VITALS: BP 132/80; PULSE 67
== END 2024-01-19 10:53 | disposition home or self-care (01) ==
LOC: OR 08:19
PROVIDERS: ATTEND Orthopaedic Surgery Hand Surgery
DX: G56.03 Carpal tunnel syndrome, bilateral upper limbs (principal); E78.5 Hyperlipidemia, unspecified; I10 Essential (primary) hypertension; M19.90 Unspecified osteoarthritis, unspecified site; E07.9 Disorder of thyroid, unspecified; Z90.49 Acquired absence of other specified parts of digestive tract; Z96.643 Presence of artificial hip joint, bilateral; Z88.0 Allergy status to penicillin; Z79.890 Hormone replacement therapy; Z79.899 Other long term (current) drug therapy; Z91.040 Latex allergy status
CPT/HCPCS: 29848; J2001 ×2; J1100; J2405; J1885; J2704; J0665